=== PATIENT | female | born 1950 | race Caucasian/White ===

== ENCOUNTER → 2024-08-30 | Outpatient (CLI) | payer MEDICARE, OTHER, SELFPAY | END | disposition home or self-care (01) | PROVIDERS: PCP Family Medicine; Referring Provider Physical Medicine & Rehabilitation Pain Medicine; Visit Provider Physical Medicine & Rehabilitation Pain Medicine | DX: Z53.8 Procedure and treatment not carried out for other reasons (principal) ==

== ENCOUNTER → 2024-10-16 | Outpatient (CLI) | payer MEDICARE, OTHER, SELFPAY ==
--- NOTE | 2024-10-16 12:30 | XR_ITS ---
Examination: MRI lumbar spine without contrast Date and time of exam: October 16, 2024 1307 hrs. Indications: Lower back pain radiating down both legs 15 years Technique: Multiple MRI axial and sagittal sections lumbar spine. Sagittal T2-weighted images, TR 3500, TE 118 T1 weighted transverse sections, TR 688 T8.5, T2-weighted sagittal sections T1 weighted sagittal sections TR 621, TE 30 T2 axial sections, TR 4, 190, TE 84. Findings: Thoracolumbar levoscoliosis 12 degrees No lumbar fracture Diffuse lumbar disc desiccation Moderate to advanced lumbar degenerative disc disease, most severe at L2-L3, L5-S1 No spondylolisthesis L5-S1 4 mm central lumbar disc bulge extending to the foraminal regions with moderate right L5 ganglionic compression L4-L5 severe overall spinal stenosis, 6 mm central lumbar disc bulge, facet arthropathy and thickening of ligamenta flava with severe bilateral L4 ganglionic compression L3-L4 5 mm central lumbar disc bulge extending to the left foraminal region with moderate left L3 ganglionic compression L2-L3 foraminal disc bulges but no ganglionic compression L1-L2 4 mm central lumbar disc bulge Impression: Diffuse lumbar degenerative disc disease, advanced L2-L3, L5-S1 L5-S1 4 mm central lumbar disc bulge with moderate right L5 ganglionic compression L4-L5 severe overall spinal stenosis including severe bilateral L4 ganglionic compression L3-L4 5 mm central lumbar disc bulge with moderate left L3 ganglionic compression
== END | disposition home or self-care (01) ==
LOC: SMRI 13:00
PROVIDERS: PCP Physical Medicine & Rehabilitation Pain Medicine; Referring Provider Physical Medicine & Rehabilitation Pain Medicine; Visit Provider Physical Medicine & Rehabilitation Pain Medicine
DX: M51.369 Other intervertebral disc degeneration, lumbar region without mention of lumbar back pain or lower extremity pain (principal); M48.061 Spinal stenosis, lumbar region without neurogenic claudication; M51.379 Other intervertebral disc degeneration, lumbosacral region without mention of lumbar back pain or lower extremity pain; G95.20 Unspecified cord compression
CPT/HCPCS: 72148

== ENCOUNTER → 2024-11-15 | Outpatient (CLI) | payer MEDICARE, OTHER, SELFPAY ==
[2024-11-15 16:02] LABS: Basophils # (Auto) 0.1 Thou/mm3 (0.0-0.2); Basophils % (Auto) 1 % (0-2.5); Eosinophils # (Auto) 0.2 Thou/mm3 (0.0-0.5); Eosinophils % (Auto) 3 % (0-10); Hematocrit 36.9 % (36.0-46.0); Immature Granulocytes % (Auto) 0 % (0-0); Immature Granulocytes Auto 0.01 Thou/mm3 (0.00-0.00); Lymphocytes # (Auto) 1.8 Thou/mm3 (1.0-4.8); Lymphocytes % (Auto) 25 % (10-50); Mean Corpuscular HGB Conc 32.5 g/dl (31.0-37.0); Mean Corpuscular Hemoglobin 31.2 pg (25.0-35.0); Mean Corpuscular Volume 96 fL (80-100); Monocytes # (Auto) 0.4 Thou/mm3 (0.0-0.8); Monocytes % (Auto) 6 % (0-12); Neutrophils # (Auto) 4.7 Thou/mm3 (1.8-7.7); Neutrophils % (Auto) 65 % (37-80); Nucleated Red Blood Cell % 0 /100 WBC (0); Platelet Count 242 Thou/mm3 (140-440); RDW Standard Deviation 49.9 fL (36.4-46.3); Red Blood Count 3.85 Miln/mm3 (4.00-5.20); White Blood Count 7.2 Thou/mm3 (3.6-11.0)
[2024-11-15 16:18] LABS: Alanine Aminotransferase 18 U/L (10-49); Albumin/Globulin Ratio 1.8 (1.2-2.2); Alkaline Phosphatase 48 U/L (46-116); Anion Gap 7 (7-16); Aspartate Amino Transferase < 8 U/L (0-34); BUN/Creatinine Ratio 21 Ratio (12-20); Bilirubin,Total 0.3 mg/dL (0.3-1.2); Blood Urea Nitrogen 17 mg/dL (9-23); C-Reactive Protein < 0.5 mg/dL (0.0-0.9); Calcium 9.3 mg/dL (8.3-10.6); Calcium (Corrected) 9.3 mg/dL (8.5-10.1); Carbon Dioxide 27.6 mMol/L (20.0-31.0); Chloride 102 mMol/L (98-107); Creatinine (Component) 0.8 mg/dL (0.6-1.3); Globulin 2.2 gm/dL (2.3-3.5); Glucose 101 mg/dL (74-106); Osmolality,Calculated 275 (275-295); Potassium 4.8 mMol/L (3.4-5.1); Sodium 137 mMol/L (136-145); Total Protein 6.2 gm/dL (5.7-8.2); eGFR > 60 See Note
[2024-11-15 16:32] LABS: Sed Rate (ESR) 4 mm/hr (0-30)
== END | disposition home or self-care (01) ==
LOC: COPL 14:23
PROVIDERS: PCP Nurse Practitioner
DX: I10 Essential (primary) hypertension (principal); J45.998 Other asthma; M25.50 Pain in unspecified joint; M35.3 Polymyalgia rheumatica; M48.02 Spinal stenosis, cervical region; M48.061 Spinal stenosis, lumbar region without neurogenic claudication; M79.7 Fibromyalgia; M81.0 Age-related osteoporosis without current pathological fracture; M85.852 Other specified disorders of bone density and structure, left thigh; R63.4 Abnormal weight loss; Z68.30 Body mass index [BMI] 30.0-30.9, adult; Z92.241 Personal history of systemic steroid therapy; Z92.25 Personal history of immunosuppression therapy
CPT/HCPCS: 36415; 80053; 85025; 85652; 86140

== ENCOUNTER → 2024-11-22 | Outpatient (CLI) | payer MEDICARE, OTHER, SELFPAY ==
[2024-11-22 10:16] LABS: Basophils # (Auto) 0.1 Thou/mm3 (0.0-0.2); Basophils % (Auto) 1 % (0-2.5); Eosinophils # (Auto) 0.2 Thou/mm3 (0.0-0.5); Eosinophils % (Auto) 3 % (0-10); Hematocrit 38.1 % (36.0-46.0); Hemoglobin 12.6 g/dL (12.0-16.0); Immature Granulocytes % (Auto) 0 % (0-0); Immature Granulocytes Auto 0.02 Thou/mm3 (0.00-0.00); Lymphocytes # (Auto) 3.3 Thou/mm3 (1.0-4.8); Lymphocytes % (Auto) 45 % (10-50); Mean Corpuscular HGB Conc 33.1 g/dl (31.0-37.0); Mean Corpuscular Hemoglobin 30.5 pg (25.0-35.0); Mean Corpuscular Volume 92 fL (80-100); Monocytes # (Auto) 0.5 Thou/mm3 (0.0-0.8); Monocytes % (Auto) 7 % (0-12); Neutrophils # (Auto) 3.3 Thou/mm3 (1.8-7.7); Neutrophils % (Auto) 45 % (37-80); Nucleated Red Blood Cell % 0 /100 WBC (0); Platelet Count 275 Thou/mm3 (140-440); Red Blood Count 4.13 Miln/mm3 (4.00-5.20); White Blood Count 7.3 Thou/mm3 (3.6-11.0)
[2024-11-22 10:52] LABS: Alanine Aminotransferase 24 U/L (10-49); Albumin, Serum 4.3 gm/dL (3.4-4.8); Alkaline Phosphatase 48 U/L (46-116); Anion Gap 6 (7-16); Aspartate Amino Transferase 18 U/L (0-34); BUN/Creatinine Ratio 20 Ratio (12-20); Bilirubin,Direct 0.1 mg/dL (0.0-0.3); Bilirubin,Total 0.5 mg/dL (0.3-1.2); Blood Urea Nitrogen 16 mg/dL (9-23); Calcium 9.5 mg/dL (8.3-10.6); Carbon Dioxide 28.6 mMol/L (20.0-31.0); Cardiac Risk Estimate 2.3 RATIO (3.7-5.6); Chloride 104 mMol/L (98-107); Cholesterol 231 mg/dL (132-200); Creatinine (Component) 0.8 mg/dL (0.6-1.3); Free T4 (Free Thyroxine) 1.15 ng/dL (0.89-1.76); Glucose 98 mg/dL (74-106); HDL Cholesterol 102 mg/dL (40-60); LDL Cholesterol,Calculated 120 mg/dL (0-130); Osmolality,Calculated 278 (275-295); Potassium 3.8 mMol/L (3.4-5.1); Sodium 139 mMol/L (136-145); Thyroid Stimulating Hormone 1.38 uIU/mL (0.55-4.78); Total Protein 6.6 gm/dL (5.7-8.2); Triglycerides 44 mg/dL (30-150); eGFR > 60 See Note
== END | disposition home or self-care (01) ==
LOC: COPL 09:03
PROVIDERS: PCP Nurse Practitioner; Referring Provider Internal Medicine Cardiovascular Disease; Visit Provider Internal Medicine Cardiovascular Disease
DX: E07.9 Disorder of thyroid, unspecified (principal); E78.5 Hyperlipidemia, unspecified; I10 Essential (primary) hypertension
CPT/HCPCS: 36415; 80048; 80061; 80076; 84439; 84443; 85025

== ENCOUNTER → 2025-01-06 | Outpatient (CLI) | payer MEDICARE, OTHER, SELFPAY ==
--- NOTE | 2025-01-06 | XR_ITS ---
Examination: PA lateral chest 2 views TECHNIQUE: Upright PA lateral chest 2 views Exam date and time: January 06, 2025 1215 hours INDICATIONS: Coughing several days. FINDINGS: Normal heart size Small retrocardiac gastric hernia Stable nodule in the right lower lung zone compared with June 17, 2023 No interval pneumonia or pulmonary edema IMPRESSION: No interval pneumonia or pulmonary edema
--- NOTE | 2025-01-06 | XR_ITS ---
Examination: Abdomen AP single view Technique: AP portable supine abdomen, single view Exam date and time: January 06, 2025 1208 hours INDICATIONS: Constipation one year. FINDINGS: Moderate stool throughout the colon Mild small bowel ileus in the left upper abdomen Surgical clips upper right abdomen No free air IMPRESSION: Mild small bowel ileus
== END | disposition home or self-care (01) ==
LOC: CDIM 11:30
PROVIDERS: PCP Family Medicine; Referring Provider Nurse Practitioner; Visit Provider Nurse Practitioner Family
DX: R05.9 Cough, unspecified (principal); K56.7 Ileus, unspecified
CPT/HCPCS: 71046; 74018

== ENCOUNTER → 2025-01-18 | Outpatient (CLI) | payer MEDICARE, OTHER, SELFPAY ==
--- NOTE | 2025-01-18 10:55 | XR_ITS ---
Examination: Lumbar spine 5 views TECHNIQUE: AP, lateral, standing lateral flexion, standing lateral extension, coned lateral lower lumbar spine 5 views Date and time: January 18, 2025 1136 hours Back pain one year. FINDINGS: Prominent osteopenia Decreased range of motion between flexion and extension No lumbar fracture Diffuse advanced lumbar degenerative disc disease IMPRESSION: Diffuse advanced lumbar degenerative disc disease
--- NOTE | 2025-01-18 10:55 | XR_ITS ---
Examination: Thoracic spine 3 views Technique one AP lateral coned lateral upper dorsal spine 3 views Date and time: January 18, 2025 1139 hours Comparison February 16, 2016 INDICATIONS: Mid back pain one year. FINDINGS: Prominent osteopenia Moderate to advanced diffuse thoracic degenerative disc disease No acute fracture Prominent thoracic spondylosis IMPRESSION: Moderate to advanced diffuse thoracic degenerative disc disease
[2025-01-18 13:04] LABS: Collection Type, Urine Clean Catch
[2025-01-18 13:18] LABS: Basophils # (Auto) 0.1 Thou/mm3 (0.0-0.2); Basophils % (Auto) 1 % (0-2.5); Eosinophils # (Auto) 0.5 Thou/mm3 (0.0-0.5); Eosinophils % (Auto) 6 % (0-10); Hematocrit 36.6 % (36.0-46.0); Hemoglobin 12.1 g/dL (12.0-16.0); Immature Granulocytes % (Auto) 0 % (0-0); Immature Granulocytes Auto 0.03 Thou/mm3 (0.00-0.00); Lymphocytes # (Auto) 3.1 Thou/mm3 (1.0-4.8); Lymphocytes % (Auto) 37 % (10-50); Mean Corpuscular HGB Conc 33.1 g/dl (31.0-37.0); Mean Corpuscular Hemoglobin 30.7 pg (25.0-35.0); Mean Corpuscular Volume 93 fL (80-100); Monocytes # (Auto) 0.8 Thou/mm3 (0.0-0.8); Monocytes % (Auto) 9 % (0-12); Neutrophils # (Auto) 3.9 Thou/mm3 (1.8-7.7); Neutrophils % (Auto) 46 % (37-80); Nucleated Red Blood Cell % 0 /100 WBC (0); Platelet Count 263 Thou/mm3 (140-440); Red Blood Count 3.94 Miln/mm3 (4.00-5.20); White Blood Count 8.5 Thou/mm3 (3.6-11.0)
[2025-01-18 13:26] LABS: Bacteria,Urine Rare; Bilirubin,Urine Negative (Negative); Blood,Urine 1+ (Negative); Color,Urine Lt-Yellow (Lt Yel-Yel); Glucose, Urine Negative (Negative); Hyaline Casts,Urine < 1 /hpf (0-1); Ketones,Urine Negative (Negative); Leukocyte Esterase,Urine Positive (Negative); Nitrite,Urine Negative (Negative); Protein,Urine Negative (Neg - Trace); RBC,Urine 6 /hpf (0-3); Squamous Epithelial Cell,Urine 20 /hpf (0-5); Urobilinogen,Urine Negative mg/dL (0.0-1.0); WBC,Urine 8 /hpf (0-5)
[2025-01-18 13:29] LABS: Alanine Aminotransferase 17 U/L (10-49); Albumin, Serum 4.3 gm/dL (3.4-4.8); Albumin/Globulin Ratio 1.8 (1.2-2.2); Alkaline Phosphatase 55 U/L (46-116); Anion Gap 7 (7-16); Aspartate Amino Transferase 25 U/L (0-34); BUN/Creatinine Ratio 18 Ratio (12-20); Bilirubin,Total 0.4 mg/dL (0.3-1.2); Blood Urea Nitrogen 14 mg/dL (9-23); Calcium 8.9 mg/dL (8.3-10.6); Calcium (Corrected) 8.9 mg/dL (8.5-10.1); Carbon Dioxide 30.8 mMol/L (20.0-31.0); Cardiac Risk Estimate 2.3 RATIO (3.7-5.6); Chloride 103 mMol/L (98-107); Cholesterol 194 mg/dL (132-200); Creatinine (Component) 0.8 mg/dL (0.6-1.3); Globulin 2.4 gm/dL (2.3-3.5); Glucose 98 mg/dL (74-106); HDL Cholesterol 86 mg/dL (40-60); LDL Cholesterol,Calculated 90 mg/dL (0-130); Osmolality,Calculated 281 (275-295); Potassium 3.9 mMol/L (3.4-5.1); Sodium 141 mMol/L (136-145); Total Protein 6.7 gm/dL (5.7-8.2); Triglycerides 92 mg/dL (30-150); eGFR > 60 See Note
[2025-01-18 13:39] LABS: Clarity,Urine Hazy (Clear/Hazy)
== END | disposition home or self-care (01) ==
PROVIDERS: PCP Nurse Practitioner; Referring Provider Nurse Practitioner; Visit Provider Physical Medicine & Rehabilitation Pain Medicine
DX: M51.360 Other intervertebral disc degeneration, lumbar region with discogenic back pain only (principal); M51.34 Other intervertebral disc degeneration, thoracic region; N30.00 Acute cystitis without hematuria; I10 Essential (primary) hypertension; E78.5 Hyperlipidemia, unspecified
CPT/HCPCS: 36415; 72072; 72100; 80053; 80061; 81001; 85025; 87077; 87086; 87186

== ENCOUNTER → 2025-03-22 | Outpatient (CLI) | payer MEDICARE, OTHER, SELFPAY ==
[2025-03-22 14:33] LABS: Misc Send Out* See Sep Rpt
[2025-03-22 16:02] LABS: Basophils # (Auto) 0.1 Thou/mm3 (0.0-0.2); Basophils % (Auto) 1 % (0-2.5); Eosinophils # (Auto) 0.1 Thou/mm3 (0.0-0.5); Eosinophils % (Auto) 1 % (0-10); Hematocrit 37.6 % (36.0-46.0); Hemoglobin 12.2 g/dL (12.0-16.0); Immature Granulocytes Auto 0.03 Thou/mm3 (0.00-0.00); Lymphocytes # (Auto) 1.1 Thou/mm3 (1.0-4.8); Lymphocytes % (Auto) 16 % (10-50); Mean Corpuscular HGB Conc 32.4 g/dl (31.0-37.0); Mean Corpuscular Hemoglobin 29.3 pg (25.0-35.0); Mean Corpuscular Volume 90 fL (80-100); Monocytes # (Auto) 0.4 Thou/mm3 (0.0-0.8); Monocytes % (Auto) 6 % (0-12); Neutrophils # (Auto) 5.3 Thou/mm3 (1.8-7.7); Neutrophils % (Auto) 76 % (37-80); Nucleated Red Blood Cell # 0.00 Thou/mm3 (0.00-0.00); Nucleated Red Blood Cell % 0 /100 WBC (0); Platelet Count 286 Thou/mm3 (140-440); RDW Standard Deviation 44.2 fL (36.4-46.3); Red Blood Count 4.16 Miln/mm3 (4.00-5.20); White Blood Count 6.9 Thou/mm3 (3.6-11.0)
[2025-03-22 16:13] LABS: Sed Rate (ESR) 20 mm/hr (0-30)
[2025-03-22 16:32] LABS: Alanine Aminotransferase 20 U/L (10-49); Albumin, Serum 4.2 gm/dL (3.4-4.8); Albumin/Globulin Ratio 1.6 (1.2-2.2); Alkaline Phosphatase 64 U/L (46-116); Anion Gap 12 (7-16); Aspartate Amino Transferase 26 U/L (0-34); BUN/Creatinine Ratio 14 Ratio (12-20); Bilirubin,Total 0.3 mg/dL (0.3-1.2); Blood Urea Nitrogen 13 mg/dL (9-23); C-Reactive Protein < 0.5 mg/dL (0.0-0.9); Calcium 9.2 mg/dL (8.3-10.6); Calcium (Corrected) 9.2 mg/dL (8.5-10.1); Carbon Dioxide 26.8 mMol/L (20.0-31.0); Chloride 100 mMol/L (98-107); Creatinine (Component) 0.9 mg/dL (0.6-1.3); Globulin 2.7 gm/dL (2.3-3.5); Glucose 190 mg/dL (74-106); Osmolality,Calculated 282 (275-295); Potassium 3.9 mMol/L (3.4-5.1); Sodium 139 mMol/L (136-145); Total Protein 6.9 gm/dL (5.7-8.2); eGFR > 60 See Note
== END | disposition home or self-care (01) ==
LOC: COPL 14:13
PROVIDERS: PCP Nurse Practitioner; Referring Provider Internal Medicine; Visit Provider Internal Medicine
DX: I10 Essential (primary) hypertension (principal); J45.998 Other asthma; M25.50 Pain in unspecified joint; M35.3 Polymyalgia rheumatica; M48.02 Spinal stenosis, cervical region; M48.061 Spinal stenosis, lumbar region without neurogenic claudication; M79.7 Fibromyalgia; M81.0 Age-related osteoporosis without current pathological fracture; M85.80 Other specified disorders of bone density and structure, unspecified site; M85.852 Other specified disorders of bone density and structure, left thigh; R63.4 Abnormal weight loss; Z78.0 Asymptomatic menopausal state; Z92.241 Personal history of systemic steroid therapy; Z92.25 Personal history of immunosuppression therapy
CPT/HCPCS: 36415; 80053; 85025; 85652; 86140

== ENCOUNTER → 2025-04-19 | Outpatient (CLI) | payer MEDICARE, OTHER, SELFPAY ==
--- NOTE | 2025-04-19 14:09 | XR_ITS ---
Examination: Knee, right , 3 views Technique: Knee AP, lateral, oblique 3 views Date and time of exam: April 19, 2025 1435 hours INDICATIONS: Patient fell 2 weeks ago with injury to the knee, knee pain. FINDINGS: Prominent osteopenia Moderate to advanced tricompartment osteoarthritis most severe lateral joint space No acute fracture IMPRESSION: No acute fracture
--- NOTE | 2025-04-19 14:09 | XR_ITS ---
Examination: Facial series 4 views TECHNIQUE: Amado Guerra lateral submentovertex facial series 4 views Date and time: April 19, 2025 1451 hours INDICATIONS: Patient fell 2 weeks ago with injury of the face, facial pain. FINDINGS: Total opacification right maxillary antrum Orbital rims grossly intact Maxilla mandible intact with no nasal bone fracture IMPRESSION: No acute facial fracture If pain persists, consider CT maxillofacial study follow-up
[2025-04-19 16:06] LABS: Basophils # (Auto) 0.1 Thou/mm3 (0.0-0.2); Basophils % (Auto) 1 % (0-2.5); Eosinophils # (Auto) 0.4 Thou/mm3 (0.0-0.5); Eosinophils % (Auto) 5 % (0-10); Hematocrit 37.9 % (36.0-46.0); Hemoglobin 12.3 g/dL (12.0-16.0); Immature Granulocytes Auto 0.02 Thou/mm3 (0.00-0.00); Lymphocytes # (Auto) 2.1 Thou/mm3 (1.0-4.8); Lymphocytes % (Auto) 28 % (10-50); Mean Corpuscular HGB Conc 32.5 g/dl (31.0-37.0); Mean Corpuscular Hemoglobin 29.7 pg (25.0-35.0); Mean Corpuscular Volume 92 fL (80-100); Monocytes # (Auto) 0.6 Thou/mm3 (0.0-0.8); Monocytes % (Auto) 8 % (0-12); Neutrophils # (Auto) 4.3 Thou/mm3 (1.8-7.7); Neutrophils % (Auto) 58 % (37-80); Nucleated Red Blood Cell # 0.00 Thou/mm3 (0.00-0.00); Nucleated Red Blood Cell % 0 /100 WBC (0); Platelet Count 270 Thou/mm3 (140-440); RDW Standard Deviation 45.8 fL (36.4-46.3); Red Blood Count 4.14 Miln/mm3 (4.00-5.20); White Blood Count 7.4 Thou/mm3 (3.6-11.0)
[2025-04-19 16:16] LABS: Alanine Aminotransferase 14 U/L (10-49); Albumin, Serum 4.1 gm/dL (3.4-4.8); Albumin/Globulin Ratio 1.7 (1.2-2.2); Alkaline Phosphatase 66 U/L (46-116); Anion Gap 8 (7-16); Aspartate Amino Transferase 19 U/L (0-34); BUN/Creatinine Ratio 17 Ratio (12-20); Bilirubin,Total 0.2 mg/dL (0.3-1.2); Blood Urea Nitrogen 12 mg/dL (9-23); C-Reactive Protein 0.6 mg/dL (0.0-0.9); Calcium 9.9 mg/dL (8.3-10.6); Calcium (Corrected) 9.9 mg/dL (8.5-10.1); Carbon Dioxide 29.6 mMol/L (20.0-31.0); Chloride 104 mMol/L (98-107); Creatinine (Component) 0.7 mg/dL (0.6-1.3); Globulin 2.4 gm/dL (2.3-3.5); Glucose 76 mg/dL (74-106); Osmolality,Calculated 281 (275-295); Potassium 3.9 mMol/L (3.4-5.1); Sodium 142 mMol/L (136-145); Total Protein 6.5 gm/dL (5.7-8.2); eGFR > 60 See Note
[2025-04-19 18:00] LABS: Sed Rate (ESR) 29 mm/hr (0-30)
== END | disposition home or self-care (01) ==
LOC: COPL 14:00
PROVIDERS: PCP Nurse Practitioner; Visit Provider Radiology Diagnostic Radiology
DX: M25.561 Pain in right knee (principal); R51.9 Headache, unspecified; I10 Essential (primary) hypertension; J45.998 Other asthma; L30.9 Dermatitis, unspecified; M25.50 Pain in unspecified joint; M35.3 Polymyalgia rheumatica; M48.02 Spinal stenosis, cervical region; M48.061 Spinal stenosis, lumbar region without neurogenic claudication; M79.7 Fibromyalgia; M81.0 Age-related osteoporosis without current pathological fracture; M85.80 Other specified disorders of bone density and structure, unspecified site; M85.852 Other specified disorders of bone density and structure, left thigh; R63.4 Abnormal weight loss; Z78.0 Asymptomatic menopausal state; Z92.241 Personal history of systemic steroid therapy; Z92.25 Personal history of immunosuppression therapy
CPT/HCPCS: 36415; 70150; 73562; 80053; 85025; 85652; 86140

== ENCOUNTER → 2025-05-19 | Outpatient (CLI) | payer MEDICARE, OTHER, SELFPAY ==
--- NOTE | 2025-05-19 10:04 | XR_ITS ---
MRI shoulder, right, without contrast. Date and time: May 19, 2025 1111 hours INDICATIONS: History right shoulder pain after injury one week ago Technique: Multiple axial, sagittal and coronal sections of the shoulder have been obtained. Siemens high-resolution 1.5 [employer] MRI scanner is utilized. Axial fat-suppressed sections, TR 2350, TE 18 T2-weighted coronal fat-saturated images, TR 3500, TE 7100 T1-weighted coronal images, TR 500, TE 15 T2-weighted sagittal fat-saturated images, TR 3500, TE 57 T1-weighted sagittal sections, TR 504, TE 13. Findings: 25 mm full-thickness rotator cuff tear Subscapularis insertion moderate strain. Subscapularis bursa is evident. Long head of the biceps is in the bicipital groove. No definite tear of the biceps superior labral anchor is seen. Retraction of the musculotendinous junction of the rotator cuff is evident. Tendinosis pattern is prominent. Distance between the acromium and humeral head is 7.5 mm Atrophy of the supraspinatus muscle is severe. Atrophy of the infraspinatus muscle is moderate. Sagittal sections demonstrate a horizontal acromion. Acromioclavicular joint demonstrates mild osteoarthritis . Osacromiale is not identified. Anterior labral tears. Bony glenoid fossa on the sagittal sections does not demonstrate osseous defect. Occult fracture or area of avascular necrosis is not seen. Acromioclavicular joint separation is not visible. Defect in the posterolateral margin of the humeral head is not seen Impression: Large full-thickness rotator cuff tear Anterior labral tears
== END | disposition home or self-care (01) ==
LOC: SMRI 09:55
PROVIDERS: PCP Nurse Practitioner; Referring Provider Nurse Practitioner; Visit Provider Nurse Practitioner
DX: M75.101 Unspecified rotator cuff tear or rupture of right shoulder, not specified as traumatic (principal); S43.431A Superior glenoid labrum lesion of right shoulder, initial encounter; X58.XXXA Exposure to other specified factors, initial encounter
CPT/HCPCS: 73221

== ENCOUNTER → 2025-06-21 | Outpatient (CLI) | payer MEDICARE, OTHER, SELFPAY ==
--- NOTE | 2025-06-21 08:45 | XR_ITS ---
Examination: Screening digital mammography, bilateral Computer aided detection 3-D breast Tomosynthesis, bilateral Date and time of exam: June 21, 2025, 0835 hours Compared to mammograms dating to 05/25/2014 Indication: Screening Technique: Nonmagnified MLO, CC views of the breasts to been obtained, reconstructed from 3-D Tomosynthesis images. R2 computer aided detection program utilized for evaluation of suspicious masses and/or abnormal calcifications. 3-D Tomosynthesis images obtained. Findings: Scattered areas of fibroglandular density. Benign calcifications. No interval suspicious masses Impression: BI-RADS category II: Benign Findings. Recommend 1 year follow-up mammogram.
== END | disposition home or self-care (01) ==
LOC: CDIM 08:28
PROVIDERS: Referring Provider Nurse Practitioner; Visit Provider Nurse Practitioner
DX: Z12.31 Encounter for screening mammogram for malignant neoplasm of breast (principal); R92.323 Mammographic fibroglandular density, bilateral breasts; R92.1 Mammographic calcification found on diagnostic imaging of breast
CPT/HCPCS: 77063; 77067

== ENCOUNTER 2025-06-23 19:26 | Emergency (ER) | payer MEDICARE, OTHER, SELFPAY ==
[2025-06-23 19:27] VITALS: BMI 31.2
--- NOTE | 2025-06-23 19:29 | EKG_ITS ---
[facility] Test Date: 2025-06-23 Pat Name: YUSUF HENNESSY Department: Room: - Gender: Female Distribution Lineman: : 1950 Requested By: David Carlisle Order Number: [id number] Reading MD: David Carlisle Measurements Intervals [place] Rate: 100 P: 31 DC: 131 QRS: -3 QRSD: 102 T: 35 QT: 331 QTc: 428 Interpretive Statements SINUS TACHYCARDIA WITH FREQUENT VENTRICULAR PREMATURE COMPLEXES ABNORMAL RHYTHM ECG Compared to ECG 06/07/2019 10:03:30 Ventricular premature complex(es) now present Sinus rhythm no longer present /store/S0/[id number].pdf
[2025-06-23 19:45] VITALS: BP 149/95; PULSE 97; RESP 18; TEMP 37.4; O2SAT 98
--- NOTE | 2025-06-23 19:56 | XR_ITS ---
EXAMINATION: PA chest single view TECHNIQUE: 1. Upright PA chest single view Date and time: June 23, 2025, 2002 hours, comparison January 06, 2025 INDICATIONS: Chest pain shortness of breath today. FINDINGS: Normal heart size. Large retrocardiac gastric hernia. No pneumonia or pulmonary edema. The sutures are intact IMPRESSION: No active disease
--- NOTE | 2025-06-23 19:57 | PD.EDRME ---
Rapid Medical Screening Exam COUNT INCLUDES THE [facility] Arrival date/time: 06/23/25 19:26 75F with history of HTN and fibromyalgia presents to ED with 2 days of elevated BP, tremors/shakiness, and some weakness/fatigue. Patient started some new meds including Jourmavx about 3 weeks ago. Chief Complaint: General Adult/Misc Complain Vital signs: Vital Signs Temperature 99.4 F 06/23/25 19:45 Pulse Rate 97 06/23/25 19:45 Respiratory Rate 18 06/23/25 19:45 Blood Pressure 149/95 H 06/23/25 19:45 Pulse Oximetry (%) 98 06/23/25 19:45 Oxygen Delivery Method Room Air 06/23/25 19:45 Exam: Clear lungs. Anxious. Clinical Impression: PVC vs anxiety vs ACS vs drug adverse effect
[2025-06-23 20:33] LABS: Basophils # (Auto) 0.1 Thou/mm3 (0.0-0.2); Basophils % (Auto) 1 % (0-2.5); Eosinophils # (Auto) 0.3 Thou/mm3 (0.0-0.5); Eosinophils % (Auto) 4 % (0-10); Hematocrit 41.1 % (36.0-46.0); Hemoglobin 13.5 g/dL (12.0-16.0); Immature Granulocytes Auto 0.04 Thou/mm3 (0.00-0.00); Lymphocytes # (Auto) 2.9 Thou/mm3 (1.0-4.8); Lymphocytes % (Auto) 32 % (10-50); Mean Corpuscular HGB Conc 32.8 g/dl (31.0-37.0); Mean Corpuscular Hemoglobin 30.7 pg (25.0-35.0); Mean Corpuscular Volume 93 fL (80-100); Monocytes # (Auto) 0.6 Thou/mm3 (0.0-0.8); Monocytes % (Auto) 7 % (0-12); Neutrophils # (Auto) 5.0 Thou/mm3 (1.8-7.7); Neutrophils % (Auto) 56 % (37-80); Nucleated Red Blood Cell # 0.00 Thou/mm3 (0.00-0.00); Nucleated Red Blood Cell % 0 /100 WBC (0); Platelet Count 284 Thou/mm3 (140-440); RDW Standard Deviation 50.1 fL (36.4-46.3); Red Blood Count 4.40 Miln/mm3 (4.00-5.20); White Blood Count 8.9 Thou/mm3 (3.6-11.0)
[2025-06-23 20:50] LABS: B-Type Natriuretic Peptide 27 pg/mL (0-100)
[2025-06-23 20:51] LABS: Alanine Aminotransferase 18 U/L (10-49); Albumin, Serum 4.6 gm/dL (3.4-4.8); Albumin/Globulin Ratio 2.0 (1.2-2.2); Alkaline Phosphatase 65 U/L (46-116); Anion Gap 12 (7-16); Aspartate Amino Transferase 35 U/L (0-34); BUN/Creatinine Ratio 13 Ratio (12-20); Bilirubin,Total 0.3 mg/dL (0.3-1.2); Blood Urea Nitrogen 10 mg/dL (9-23); Calcium 9.5 mg/dL (8.3-10.6); Calcium (Corrected) 9.5 mg/dL (8.5-10.1); Carbon Dioxide 28.3 mMol/L (20.0-31.0); Chloride 101 mMol/L (98-107); Creatinine (Component) 0.8 mg/dL (0.6-1.3); Estimated Creatinine Clearance 54.9 mL/min (>60); Globulin 2.3 gm/dL (2.3-3.5); Glucose 114 mg/dL (74-106); Magnesium 2.1 mg/dL (1.6-2.6); Osmolality,Calculated 281 (275-295); Potassium 3.7 mMol/L (3.4-5.1); Sodium 141 mMol/L (136-145); Total Protein 6.9 gm/dL (5.7-8.2); Troponin I < 0.020 ng/mL (0.0-0.045); eGFR > 60 See Note
[2025-06-23 21:30] LABS: Collection Type, Urine Clean Catch
[2025-06-23 21:41] LABS: Bacteria,Urine Rare; Bilirubin,Urine Negative (Negative); Blood,Urine 1+ (Negative); Clarity,Urine Clear (Clear/Hazy); Color,Urine Lt-Yellow (Lt Yel-Yel); Culture Indicated,Urine Not Indicated; Glucose, Urine Negative (Negative); Ketones,Urine Negative (Negative); Leukocyte Esterase,Urine Negative (Negative); Nitrite,Urine Negative (Negative); PH,Urine 6.5 (5.0-7.0); Protein,Urine Negative (Neg - Trace); RBC,Urine 19 /hpf (0-3); Specific Gravity,Urine 1.009 (1.001-1.035); Squamous Epithelial Cell,Urine 1 /hpf (0-5); Urobilinogen,Urine Negative mg/dL (0.0-1.0); WBC,Urine 1 /hpf (0-5)
[2025-06-23 22:39] LABS: Amphetamine/Methamp Scrn,U Negative (Negative); Barbiturate Screen,Urine Negative (Negative); Benzodiazepines Screen,Urine Negative (Negative); Benzoylecgonine Screen, Ur Negative (Negative); Fentanyl Screen,Urine Negative (Negative); Opiate Screen,Urine Positive (Negative); THC Screen,Urine Positive (Negative)
[2025-06-23 23:35] VITALS: BP 157/73; PULSE 89; RESP 19; TEMP 37.1; O2SAT 97
== END 2025-06-24 03:01 | disposition left against medical advice (07) ==
PROVIDERS: Physician Assistant; Emergency Provider Emergency Medicine
DX: Z53.21 Procedure and treatment not carried out due to patient leaving prior to being seen by health care provider (principal)
CPT/HCPCS: 36415; 71045; 80053; 80307; 81001; 83735; 83880; 84484; 85025; 93005; 99283

== ENCOUNTER → 2025-06-29 | Outpatient (CLI) | payer MEDICARE, OTHER, SELFPAY ==
--- NOTE | 2025-06-29 14:52 | XR_ITS ---
Examination: Humerus 2 views right Technique: Humerus, AP lateral 2 views Date and time of exam: June 29, 2025, 1521 hours INDICATIONS: Right arm pain months. FINDINGS: Mild to moderate narrowing glenohumeral joint No shoulder fracture or dislocation Mild right shoulder calcific tendinitis Cortex of the humerus intact IMPRESSION: No fracture of the humerus Mild to moderate narrowing glenohumeral joint Mild right shoulder calcific tendinitis
== END | disposition home or self-care (01) ==
PROVIDERS: PCP Nurse Practitioner; Referring Provider Nurse Practitioner; Visit Provider Nurse Practitioner
DX: M75.31 Calcific tendinitis of right shoulder (principal); M25.811 Other specified joint disorders, right shoulder
CPT/HCPCS: 73060

== ENCOUNTER → 2025-07-19 | Outpatient (CLI) | payer MEDICARE, OTHER, SELFPAY ==
[2025-07-19 11:43] LABS: Misc Send Out* See Sep Rpt
[2025-07-25 06:57] LABS: ANA Screen, IFA NEGATIVE (NEGATIVE)
== END | disposition home or self-care (01) ==
LOC: COPL 11:27
PROVIDERS: PCP Family Medicine; Referring Provider Nurse Practitioner; Visit Provider Nurse Practitioner
DX: R21 Rash and other nonspecific skin eruption (principal); L56.8 Other specified acute skin changes due to ultraviolet radiation; H53.143 Visual discomfort, bilateral; K13.70 Unspecified lesions of oral mucosa
CPT/HCPCS: 36415; 86038; 86695; 86696